=== PATIENT | female | born 1995 | race African-American/Black ===

== ENCOUNTER 2022-02-18 14:20 | Emergency (ER) | payer MEDICAID ==
[~2022-02-18] VITALS: Ht 160 cm; Wt 70.0 kg
[2022-02-18 14:29] VITALS: BP 126/81
[2022-02-18 14:57] LABS: BASOPHILS % 1.1 % (0.0-2.0); EOSINOPHILS % 2.8 % (0.0-5.0); HEMATOCRIT. 36.1 % (36.0-48.0); HEMOGLOBIN. 11.8 g/dL (12.0-16.0); LYMPHOCYTES % 43.6 % (20.0-50.0); MEAN CORPUSCULAR HEMOGLOBIN 27.6 pg (28.0-32.0); MEAN CORPUSCULAR VOLUME 84.7 fL (81.0-99.0); MONOCYTES % 9.2 % (2.0-8.0); NEUTROPHILS % 43.3 % (40.0-76.0); PLATELET 353 x1000/uL (130-400); RED BLOOD CELL COUNT 4.26 mill/uL (4.2-5.4); RED CELL DISTRIBUTION WIDTH 14.8 % (11.6-14.6)
[2022-02-18 15:06] LABS: CHLORIDE 108 mEq/L (98-107)
== END 2022-02-18 21:26 | disposition left against medical advice (07) ==
LOC: ER 14:43
DX: R55 Syncope and collapse (principal)
CPT/HCPCS: 36415; 71045; 80053; 85025; 93005; 99285

== ENCOUNTER 2024-04-01 13:44 | Emergency (ER) | payer MEDICAID ==
[~2024-04-01] VITALS: Ht 160 cm; Wt 61.0 kg
[2024-04-01 13:49] VITALS: BP 131/72; PULSE 61; RESP 20; TEMP 98.2; O2SAT 100
[2024-04-01 14:16] LABS: BASOPHILS % 0.6 % (0.0-2.0); EOSINOPHILS % 0.8 % (0.0-5.0); HEMATOCRIT. 38.6 % (36.0-48.0); HEMOGLOBIN. 12.6 g/dL (12.0-16.0); LYMPHOCYTES % 23.9 % (20.0-50.0); MEAN CORPUSCULAR HEMOGLOBIN 30.6 pg (28.0-32.0); MEAN CORPUSCULAR HGB CONC 32.7 g/dL (31.0-37.0); MEAN CORPUSCULAR VOLUME 93.7 fL (81.0-99.0); MEAN PLATELET VOLUME 7.2 fl (7.4-10.4); MONOCYTES % 8.4 % (2.0-8.0); NEUTROPHILS % 66.3 % (40.0-76.0); PLATELET 332 x1000/uL (130-400); RED BLOOD CELL COUNT 4.12 mill/uL (4.2-5.4); RED CELL DISTRIBUTION WIDTH 14.2 % (11.6-14.6); WHITE BLOOD COUNT 6.2 x1000/uL (4.5-11.0)
[2024-04-01 14:25] LABS: CHLORIDE 109 mEq/L (98-107); POTASSIUM 3.7 mEq/L (3.5-5.1); SODIUM 140 mEq/L (136-145)
[2024-04-01 14:26] LABS: CALCIUM 9.6 mg/dL (8.7-10.4); CARBON DIOXIDE 26 mEq/L (21-32)
[2024-04-01 14:31] LABS: CREATININE 0.9 mg/dL (0.6-1.0); GLUCOSE 79 mg/dL (70-105); UREA NITROGEN BLOOD 8 mg/dL (9-23)
[2024-04-01 14:33] LABS: ALANINE AMINOTRANSFERASE 93 IU/L (10-49); ALBUMIN 4.6 g/dL (3.2-4.8); ASPARTATE AMINOTRANSFERASE 452 IU/L (<34); BILIRUBIN DIRECT 0.3 mg/dL (<=3.0); PROTEIN TOTAL 7.2 g/dL (6.0-8.3)
[2024-04-01 14:35] LABS: THYROID STIMULATING HORMONE 0.84 uIU/mL (0.55-4.78)
== END 2024-04-01 16:13 | disposition home or self-care (01) ==
LOC: ER 13:44
DX: R07.89 Other chest pain (principal)
CPT/HCPCS: 36415; 71045; 80048; 80076; 84443; 85025; 93005; 99285

== ENCOUNTER 2024-08-10 14:10 | Emergency (ER) | payer MEDICAID ==
[~2024-08-10] VITALS: Ht 152.4 cm; Wt 59.0 kg
[2024-08-10 14:12] VITALS: O2SAT 99
[2024-08-10 14:29] VITALS: BP 110/61; PULSE 75; RESP 16; TEMP 97.9; O2SAT 99
== END 2024-08-10 16:13 | disposition left against medical advice (07) ==
LOC: ER 14:10
DX: R51.9 Headache, unspecified (principal); Z53.21 Procedure and treatment not carried out due to patient leaving prior to being seen by health care provider